=== PATIENT | female | born 1970 | race Caucasian/White ===

== ENCOUNTER 2017-04-19 08:14 | Emergency (ER) | payer MEDICAID, OTHER ==
[~2017-04-19] VITALS: Ht 154.9 cm; Wt 90.9 kg
[~2017-04-19 08:14] MED LIST: ARIP5TAB8 PO; ESCI20TA PO; FERR-89 PO; TRAZ150T79 PO
[2017-04-19 10:05] VITALS: BP 119/69
[2017-04-19] MEDS ORDERED: IBUPROFEN 400 MG TABLET PO ONE (10:35)
== END 2017-04-19 10:59 | disposition home or self-care (01) ==
LOC: EMS 08:15
DX: M25.512 Pain in left shoulder (principal); M54.2 Cervicalgia; R10.2 Pelvic and perineal pain; F12.90 Cannabis use, unspecified, uncomplicated; F19.90 Other psychoactive substance use, unspecified, uncomplicated; Z88.0 Allergy status to penicillin
CPT/HCPCS: 72040; 72170; 99284

== ENCOUNTER 2017-04-22 19:42 | Inpatient (IN) | payer MEDICAID, OTHER ==
[~2017-04-22] VITALS: Ht 154.9 cm; Wt 89.9 kg
[2017-04-22 20:23] LABS: BASOPHILS # (AUTO) 0.02 K/uL (0.00-0.20); BASOPHILS % (AUTO) 0.3 % (0.0-2.0); EOSINOPHILS # (AUTO) 0.06 K/uL (0.00-0.70); EOSINOPHILS % (AUTO) 0.88 % (1.0-6.0); HEMATOCRIT 30.8 % (36-46); HEMOGLOBIN 10.4 g/dL (12.0-16.0); LYMPHOCYTES % (AUTO) 29.2 % (22.0-44.0); MEAN CORPUSCULAR HEMOGLOBIN 29.9 pg (26.0-34.0); MEAN CORPUSCULAR HGB CONC 33.7 G/dL (31.0-37.0); MEAN CORPUSCULAR VOLUME 89 fL (80-100); MONOCYTES # (AUTO) 0.6 K/uL (0.1-1.0); MONOCYTES % (AUTO) 8.2 % (2.0-9.0); NEUTROPHILS # (AUTO) 4.2 K/uL (1.8-7.7); NEUTROPHILS % (AUTO) 61.5 % (40.0-70.0); PLATELET COUNT (AUTO) 191 K/uL (150-450); RED BLOOD CELL COUNT(AUTO) 3.48 MIL/uL (4.00-5.20); RED CELL DISTRIBUTION WIDTH 14.5 % (11.5-14.5); WHITE BLOOD COUNT (AUTO) 6.9 K/uL (4.5-11.0)
[2017-04-22 20:34] LABS: ANION GAP 6 mmol/L (8-16); CALCIUM, TOTAL 8.3 mg/dL (8.8-10.5); CARBON DIOXIDE 28 mmol/L (22-29); CHLORIDE 104 mmol/L (98-107); CREATININE 0.72 mg/dL (0.60-1.30); GLOMERULAR FILTR. RATE CALC > 60 mL/min (>60); POTASSIUM 3.9 mmol/L (3.5-5.1); SODIUM SERUM 138 mmol/L (136-145); UREA NITROGEN, BLOOD 15 mg/dL (7-18)
[2017-04-22 20:40] LABS: ALANINE AMINOTRANSFERASE 41 U/L (12-78); ALBUMIN 3.2 g/dL (3.4-5.0); ASPARTATE AMINOTRANSFERASE 17 U/L (15-37); BILIRUBIN,TOTAL 0.2 mg/dL (0.1-1.0); TOTAL PROTEIN, SERUM 6.4 g/dL (6.4-8.2)
[2017-04-22] MEDS ORDERED: HALOPERIDOL 5 MG TABLET PO ONE (22:15)
[2017-04-22] MEDS ORDERED: LORazepam 2 MG TABLET PO ONE (22:15)
[2017-04-22] MEDS ORDERED: HALOPERIDOL 5 MG TABLET PO PRN (23:45)
[2017-04-23 04:00] VITALS: BP 115/70
[2017-04-23] MEDS ORDERED: INFLUENZA VIRUS VACCINE QVS 2017-18 (3YR+)/PF 60 MCG/0.5 ML SYRINGE IM ONE (04:00)
[2017-04-23] MEDS ORDERED: PNEUMOCOCCAL VACCINE POLYVALENT 0.5 ML VIAL [PPSV23] IM ONE (04:00)
[2017-04-23] MEDS ORDERED: ONDANSETRON HCL 4 MG TABLET PO PRN (06:30)
[2017-04-23] MEDS ORDERED: PETROLATUM,WHITE 71 GM JELLY TP PRN (06:30)
[2017-04-23] MEDS ORDERED: BENZOCAINE/MENTHOL LOZENGE MM PRN (06:30)
[2017-04-23] MEDS ORDERED: LOPERAMIDE HCL 2 MG CAPSULE PO PRN (06:30)
[2017-04-23] MEDS ORDERED: MAGNESIUM HYDROXIDE SUSPENSION 30 ML UDCUP PO PRN (06:30)
[2017-04-23] MEDS ORDERED: ALBUTEROL SULFATE HFA 90 MCG/PUFF 8 GM INHALER IH PRN (06:30)
[2017-04-23] MEDS ORDERED: CloNIDine HCL 0.1 MG TABLET PO PRN (06:30)
[2017-04-23] MEDS ORDERED: ACETAMINOPHEN 325 MG TABLET PO PRN (06:30)
[2017-04-23] MEDS ORDERED: MAG HYDROX/AL HYDROX/SIMETH ES 30 ML SUSPENSION UDCUP PO PRN (06:30)
[2017-04-23] MEDS ORDERED: BACITRACIN 28.4 GM OINTMENT TP PRN (06:30)
[2017-04-23 09:00] VITALS: BP 98/55
[2017-04-23] MEDS: FERROUS SULFATE 325 MG EC TABLET PO SCH (09:34)
[2017-04-23] MEDS: CHOLECALCIFEROL (VIT D3) 1,000 UNITS TABLET PO SCH (09:34)
[2017-04-23] MEDS: OMEPRAZOLE 20 MG CAPSULE PO SCH (09:34)
[2017-04-23] MEDS: DOCUSATE SODIUM 100 MG CAPSULE PO SCH (09:34)
[2017-04-23] MEDS: LORazepam 2 MG TABLET PO PRN (12:17)
[2017-04-23] MEDS: ESCITALOPRAM OXALATE 20 MG TABLET PO SCH (15:36)
[2017-04-23] MEDS: ARIPiprazole 5 MG TABLET PO SCH (15:36)
[2017-04-23 16:45] VITALS: BP 108/78
[2017-04-23] MEDS: TraZODone HCL 150 MG TABLET PO SCH (20:28)
[2017-04-24 00:05] VITALS: BP 105/60
[2017-04-24] MEDS: OMEPRAZOLE 20 MG CAPSULE PO SCH (08:55)
[2017-04-24] MEDS: CHOLECALCIFEROL (VIT D3) 1,000 UNITS TABLET PO SCH (08:55)
[2017-04-24] MEDS: FERROUS SULFATE 325 MG EC TABLET PO SCH (08:55)
[2017-04-24] MEDS: DOCUSATE SODIUM 100 MG CAPSULE PO SCH (08:55)
[2017-04-24] MEDS: ARIPiprazole 5 MG TABLET PO SCH (08:55)
[2017-04-24] MEDS: ESCITALOPRAM OXALATE 20 MG TABLET PO SCH (08:55)
[2017-04-24 09:00] VITALS: BP 116/65
[2017-04-24] MEDS: IBUPROFEN 600 MG TABLET PO PRN (10:00)
[2017-04-24] MEDS: LORazepam 2 MG TABLET PO PRN (14:06)
[2017-04-24 16:26] VITALS: BP 116/77
[2017-04-24] MEDS: TraZODone HCL 150 MG TABLET PO SCH (20:23)
[2017-04-25 05:04] VITALS: BP 117/78
[2017-04-25] MEDS: LORazepam 2 MG TABLET PO PRN (05:15)
[2017-04-25 09:04] VITALS: BP 121/70
[2017-04-25] MEDS: FERROUS SULFATE 325 MG EC TABLET PO SCH (09:55)
[2017-04-25] MEDS: CHOLECALCIFEROL (VIT D3) 1,000 UNITS TABLET PO SCH (09:55)
[2017-04-25] MEDS: OMEPRAZOLE 20 MG CAPSULE PO SCH (09:55)
[2017-04-25] MEDS: IBUPROFEN 600 MG TABLET PO PRN (09:55)
[2017-04-25] MEDS: DOCUSATE SODIUM 100 MG CAPSULE PO SCH (09:55)
[2017-04-25] MEDS: ESCITALOPRAM OXALATE 20 MG TABLET PO SCH (10:34)
[2017-04-25] MEDS: ARIPiprazole 5 MG TABLET PO SCH (10:34)
[2017-04-25 16:30] VITALS: BP 125/70
[2017-04-25] MEDS: TraZODone HCL 150 MG TABLET PO SCH (20:13)
[2017-04-26 03:22] VITALS: BP 111/73
[2017-04-26] MEDS: LORazepam 2 MG TABLET PO PRN ×2 (03:38→12:18)
[2017-04-26 08:46] LABS: CHOL/HDL RATIO 3.4 (3.9-5.7); THYROID STIMULATING HORMONE 3.42 uIU/mL (0.36-3.74)
[2017-04-26] MEDS: CHOLECALCIFEROL (VIT D3) 1,000 UNITS TABLET PO SCH (08:48)
[2017-04-26] MEDS: FERROUS SULFATE 325 MG EC TABLET PO SCH (08:48)
[2017-04-26] MEDS: OMEPRAZOLE 20 MG CAPSULE PO SCH (08:48)
[2017-04-26] MEDS: ARIPiprazole 5 MG TABLET PO SCH (08:48)
[2017-04-26] MEDS: DOCUSATE SODIUM 100 MG CAPSULE PO SCH (08:48)
[2017-04-26] MEDS: ESCITALOPRAM OXALATE 20 MG TABLET PO SCH (08:48)
[2017-04-26 09:04] VITALS: BP 136/76
[2017-04-26 17:17] VITALS: BP 104/71
[2017-04-26] MEDS: TraZODone HCL 150 MG TABLET PO SCH (20:08)
[2017-04-26] MEDS: ZOLPIDEM TARTRATE 10 MG TABLET PO PRN (20:28)
[2017-04-27 00:15] VITALS: BP 126/77
[2017-04-27] MEDS: FERROUS SULFATE 325 MG EC TABLET PO SCH (09:00)
[2017-04-27] MEDS: OMEPRAZOLE 20 MG CAPSULE PO SCH (09:00)
[2017-04-27] MEDS: CHOLECALCIFEROL (VIT D3) 1,000 UNITS TABLET PO SCH (09:00)
[2017-04-27] MEDS: ARIPiprazole 5 MG TABLET PO SCH (09:00)
[2017-04-27] MEDS: DOCUSATE SODIUM 100 MG CAPSULE PO SCH (09:00)
[2017-04-27 09:02] VITALS: BP 116/73
[2017-04-27] MEDS: ESCITALOPRAM OXALATE 20 MG TABLET PO SCH (09:02)
[2017-04-27] MEDS: IBUPROFEN 600 MG TABLET PO PRN (11:38)
[2017-04-27 11:39] VITALS: BP 120/76
[2017-04-27] MEDS: LORazepam 2 MG TABLET PO PRN (16:07)
[2017-04-27] MEDS: CIPROFLOXACIN HCL 500 MG TABLET PO SCH (16:07)
[2017-04-27 17:44] VITALS: BP 125/77
[2017-04-27] MEDS: TraZODone HCL 150 MG TABLET PO SCH (20:17)
[2017-04-27] MEDS: ZOLPIDEM TARTRATE 10 MG TABLET PO PRN (20:29)
[2017-04-28 00:15] VITALS: BP 125/80
[2017-04-28 08:18] LABS: BASOPHILS % (AUTO) 0.3 % (0.0-2.0); EOSINOPHILS % (AUTO) 0.7 % (1.0-6.0); HEMATOCRIT 31.8 % (36-46); LYMPHOCYTES # (AUTO) 2.1 K/uL (1.0-4.8); LYMPHOCYTES % (AUTO) 33.5 % (22.0-44.0); MEAN CORPUSCULAR HEMOGLOBIN 30.4 pg (26.0-34.0); MEAN CORPUSCULAR HGB CONC 34.5 G/dL (31.0-37.0); MEAN CORPUSCULAR VOLUME 88 fL (80-100); MONOCYTES # (AUTO) 0.4 K/uL (0.1-1.0); NEUTROPHILS # (AUTO) 3.6 K/uL (1.8-7.7); NEUTROPHILS % (AUTO) 58.5 % (40.0-70.0); PLATELET COUNT (AUTO) 226 K/uL (150-450); RED CELL DISTRIBUTION WIDTH 14.5 % (11.5-14.5); WHITE BLOOD COUNT (AUTO) 6.2 K/uL (4.5-11.0)
[2017-04-28 08:19] LABS: ANION GAP 4 mmol/L (8-16); CALCIUM, TOTAL 8.3 mg/dL (8.8-10.5); CARBON DIOXIDE 30 mmol/L (22-29); CHLORIDE 104 mmol/L (98-107); GLOMERULAR FILTR. RATE CALC > 60 mL/min (>60); POTASSIUM 4.5 mmol/L (3.5-5.1); SODIUM SERUM 138 mmol/L (136-145); UREA NITROGEN, BLOOD 15 mg/dL (7-18)
[2017-04-28 08:35] VITALS: BP 101/67
[2017-04-28 08:35] LABS: APPEARANCE,URINE TURBID (CLEAR); GLUCOSE, URINE (UA) NEGATIVE (NEGATIVE); KETONES,URINE NEGATIVE (NEGATIVE); LEUKOCYTE ESTERASE ,URINE NEGATIVE (NEGATIVE); OCCULT BLOOD,URINE SMALL (NEGATIVE); PH,URINE 5.5 (5.0-8.0); PROTEIN,URINE NEGATIVE (NEGATIVE)
[2017-04-28 08:37] LABS: ADD UA MICROSCOPIC YES
[2017-04-28 08:54] LABS: RBC,URINE 0-2 /HPF (0-2); SQUAMOUS EPITHELIAL CELL,UR Few /LPF (None Seen); WBC,URINE None Seen /HPF (0-5)
[2017-04-28] MEDS: DOCUSATE SODIUM 100 MG CAPSULE PO SCH (08:57)
[2017-04-28] MEDS: CHOLECALCIFEROL (VIT D3) 1,000 UNITS TABLET PO SCH (08:57)
[2017-04-28] MEDS: LORazepam 2 MG TABLET PO PRN ×2 (08:57→16:28)
[2017-04-28] MEDS: OMEPRAZOLE 20 MG CAPSULE PO SCH (08:57)
[2017-04-28] MEDS: CIPROFLOXACIN HCL 500 MG TABLET PO SCH ×2 (08:57→16:28)
[2017-04-28] MEDS: ESCITALOPRAM OXALATE 20 MG TABLET PO SCH (08:57)
[2017-04-28] MEDS: ARIPiprazole 5 MG TABLET PO SCH (08:58)
[2017-04-28] MEDS: FERROUS SULFATE 325 MG EC TABLET PO SCH (08:58)
[2017-04-28 16:43] VITALS: BP 106/64
[2017-04-28] MEDS: TraZODone HCL 150 MG TABLET PO SCH (20:54)
[2017-04-28] MEDS: ZOLPIDEM TARTRATE 10 MG TABLET PO PRN (21:00)
[2017-04-29 06:29] VITALS: BP 130/81
[2017-04-29] MEDS: ARIPiprazole 5 MG TABLET PO SCH (08:42)
[2017-04-29] MEDS: CIPROFLOXACIN HCL 500 MG TABLET PO SCH ×2 (08:42→16:45)
[2017-04-29] MEDS: ESCITALOPRAM OXALATE 20 MG TABLET PO SCH (08:42)
[2017-04-29] MEDS: CHOLECALCIFEROL (VIT D3) 1,000 UNITS TABLET PO SCH (08:42)
[2017-04-29] MEDS: OMEPRAZOLE 20 MG CAPSULE PO SCH (08:42)
[2017-04-29] MEDS: DOCUSATE SODIUM 100 MG CAPSULE PO SCH (08:43)
[2017-04-29] MEDS: FERROUS SULFATE 325 MG EC TABLET PO SCH (08:44)
[2017-04-29 09:12] VITALS: BP 108/61
[2017-04-29] MEDS: LORazepam 2 MG TABLET PO PRN ×2 (11:56→16:45)
[2017-04-29 16:22] VITALS: BP 115/66
[2017-04-29] MEDS: TraZODone HCL 150 MG TABLET PO SCH (20:32)
[2017-04-29] MEDS: ZOLPIDEM TARTRATE 10 MG TABLET PO PRN (20:33)
[2017-04-30 06:13] VITALS: BP 132/77
[2017-04-30] MEDS: LORazepam 2 MG TABLET PO PRN (06:13)
[2017-04-30 09:01] VITALS: BP 129/77
[2017-04-30] MEDS: ARIPiprazole 5 MG TABLET PO SCH (10:07)
[2017-04-30] MEDS: FERROUS SULFATE 325 MG EC TABLET PO SCH (10:08)
[2017-04-30] MEDS: OMEPRAZOLE 20 MG CAPSULE PO SCH (10:08)
[2017-04-30] MEDS: DOCUSATE SODIUM 100 MG CAPSULE PO SCH (10:08)
[2017-04-30] MEDS: CHOLECALCIFEROL (VIT D3) 1,000 UNITS TABLET PO SCH (10:08)
[2017-04-30] MEDS: CIPROFLOXACIN HCL 500 MG TABLET PO SCH (10:13)
[2017-04-30] MEDS: ESCITALOPRAM OXALATE 20 MG TABLET PO SCH (10:13)
[2017-04-30] MEDS ORDERED: HEPATITIS A VACCINE, INACTI [ADULT] 1,440 UNITS/ML VIAL IM ONE (14:15)
[2017-04-30] MEDS ORDERED: ARIP5TAB8 PO (15:34)
[2017-04-30] MEDS ORDERED: TRAZ150T79 PO (15:34)
[2017-04-30] MEDS ORDERED: ESCI20TA PO (15:34)
[2017-04-30] MEDS ORDERED: DOCU-119 PO (15:38)
[2017-04-30] MEDS ORDERED: OMEP10SU2 PO (15:39)
[2017-04-30] MEDS ORDERED: CHOL100034 PO (15:40)
== END 2017-04-30 16:58 | disposition home or self-care (01) | DRG 751 ==
LOC: EMS 19:44 → B2S 23:45
PROVIDERS: ADMIT Psychiatry & Neurology Psychiatry; ATTEND Psychiatry & Neurology Psychiatry
DX: F33.3 Major depressive disorder, recurrent, severe with psychotic symptoms (principal); R45.851 Suicidal ideations; D50.9 Iron deficiency anemia, unspecified; I10 Essential (primary) hypertension; F15.10 Other stimulant abuse, uncomplicated; E55.9 Vitamin D deficiency, unspecified; E66.9 Obesity, unspecified; F12.90 Cannabis use, unspecified, uncomplicated; F41.9 Anxiety disorder, unspecified; G47.00 Insomnia, unspecified; J45.909 Unspecified asthma, uncomplicated; F60.3 Borderline personality disorder; K21.9 Gastro-esophageal reflux disease without esophagitis; R30.0 Dysuria; K59.00 Constipation, unspecified; Z90.49 Acquired absence of other specified parts of digestive tract; Z88.0 Allergy status to penicillin; Z68.37 Body mass index [BMI] 37.0-37.9, adult; Z79.899 Other long term (current) drug therapy
CPT/HCPCS: 84443; 87081; 87086; 87147; 90471; 90632; 99285; G0480

== ENCOUNTER 2018-01-06 18:36 | Emergency (ER) | payer MEDICAID, OTHER ==
[~2018-01-06] VITALS: Ht 154.9 cm; Wt 104.5 kg
[~2018-01-06 18:36] MED LIST changes: +CHOL100034 PO; +DOCU-119 PO; +OMEP10SU2 PO
[2018-01-06 19:05] LABS: APPEARANCE,URINE CLEAR (CLEAR); BILIRUBIN,URINE NEGATIVE (NEGATIVE); GLUCOSE, URINE (UA) NEGATIVE (NEGATIVE); KETONES,URINE NEGATIVE (NEGATIVE); LEUKOCYTE ESTERASE ,URINE NEGATIVE (NEGATIVE); NITRATE,URINE NEGATIVE (NEGATIVE); OCCULT BLOOD,URINE LARGE (NEGATIVE); PROTEIN,URINE NEGATIVE (NEGATIVE); UROBILINOGEN,URINE 0.2 mg/dL (<=1.0)
[2018-01-06 19:10] LABS: BASOPHILS % (AUTO) 0.9 % (0.0-2.0); EOSINOPHILS % (AUTO) 0.9 % (1.0-6.0); HEMATOCRIT 31.9 % (36-46); HEMOGLOBIN 11.4 g/dL (12.0-16.0); LYMPHOCYTES # (AUTO) 2.6 K/uL (1.0-4.8); LYMPHOCYTES % (AUTO) 32.6 % (22.0-44.0); MEAN CORPUSCULAR HGB CONC 35.6 G/dL (31.0-37.0); MEAN CORPUSCULAR VOLUME 87 fL (80-100); MONOCYTES # (AUTO) 0.6 K/uL (0.1-1.0); NEUTROPHILS # (AUTO) 4.6 K/uL (1.8-7.7); NEUTROPHILS % (AUTO) 58.6 % (40.0-70.0); PLATELET COUNT (AUTO) 251 K/uL (150-450); RED BLOOD CELL COUNT(AUTO) 3.66 MIL/uL (4.00-5.20); RED CELL DISTRIBUTION WIDTH 13.9 % (11.5-14.5)
[2018-01-06 19:17] LABS: BACTERIA,URINE Few /HPF (None Seen); SQUAMOUS EPITHELIAL CELL,UR Many /LPF (None Seen); WBC,URINE 0-2 /HPF (0-5)
[2018-01-06 19:18] LABS: CALCIUM OXALATE CRYSTALS,UR Rare /LPF (None Seen)
[2018-01-06] MEDS ORDERED: KETOROLAC TROMETHAMINE 30 MG/ML VIAL IVP ONE (21:30)
[2018-01-06] MEDS ORDERED: ONDANSETRON HCL 4 MG/2 ML VIAL IVP ONE (21:30)
[2018-01-06 23:13] VITALS: BP 112/84
== END 2018-01-06 23:26 | disposition home or self-care (01) ==
LOC: EMS 18:37
DX: R10.9 Unspecified abdominal pain (principal); R11.2 Nausea with vomiting, unspecified; R19.7 Diarrhea, unspecified; F41.9 Anxiety disorder, unspecified; F32.9 Major depressive disorder, single episode, unspecified; F12.10 Cannabis abuse, uncomplicated; F15.10 Other stimulant abuse, uncomplicated; Z88.0 Allergy status to penicillin
CPT/HCPCS: 36415; 74176; 81001; 84703; 85025; 96374; 96375; 99285; J1885; J2405